=== PATIENT | female | born 1990 | race African-American/Black ===

== ENCOUNTER 2016-12-18 17:27 | Emergency (ER) | payer OTHER ==
[~2016-12-18] VITALS: Ht 160 cm; Wt 61.2 kg
[2016-12-18 17:31] VITALS: BP 140/93
[2016-12-18] MEDS ORDERED: PROMETHAZINE D480 ML GT (18:22)
[2016-12-18] MEDS ORDERED: PREDNISONE 20 M20 MG PO (18:22)
[2016-12-18] MEDS ORDERED: MOBIC15 MG PO (18:22)
[2016-12-20] MEDS ORDERED: VENTOLIN HFA 1818 GM INH (19:34)
== END 2016-12-18 18:29 | disposition home or self-care (01) ==
LOC: ER 17:27
DX: J02.9 Acute pharyngitis, unspecified (principal); J20.8 Acute bronchitis due to other specified organisms; Z88.6 Allergy status to analgesic agent